=== PATIENT | female | born 2000 | race Caucasian/White ===

== ENCOUNTER → 2023-01-19 | Outpatient (CLI) | payer BC | LOC: COL.RAD 09:52 | DX: G43.109 Migraine with aura, not intractable, without status migrainosus (principal) ==

== ENCOUNTER 2023-01-20 19:19 | Emergency (ER) | payer BC ==
[~2023-01-20] VITALS: Ht 175.3 cm; Wt 94.5 kg
[2023-01-20 19:27] VITALS: TEMP 99
[2023-01-20 20:13] VITALS: BP 137/80; PULSE 90
== END 2023-01-20 20:25 | disposition home or self-care (01) ==
LOC: COL.ER 19:19
DX: M54.6 Pain in thoracic spine (principal); R07.89 Other chest pain; Z28.311 Partially vaccinated for COVID-19